=== PATIENT | female | born 1995 | race Caucasian/White ===

== ENCOUNTER 2023-01-03 23:52 | Emergency (ER) | payer OTHER ==
[2023-01-04] MEDS ORDERED: LEVOTHYROXIN100 MCG PO (00:17)
[2023-01-04] MEDS ORDERED: SERTRALINE50 MG PO (00:17)
[2023-01-04 00:31] VITALS: BP 125/84
== END 2023-01-04 01:06 | disposition home or self-care (01) | DRG 923 ==
LOC: ED 23:52
DX: Z04.2 Encounter for examination and observation following work accident (principal)